=== PATIENT | female | born 1955 | race Caucasian/White ===

== ENCOUNTER → 2018-11-02 14:52 | Outpatient (CLI) | payer SELFPAY ==
--- NOTE | 2018-11-02 | DI.MG.S_ITS ---
BILATERAL DIGITAL SCREENING MAMMOGRAM 3D/2D WITH CAD POST LUMPECTOMY: 11/02/2018 CLINICAL: Routine screening. Personal history of left breast cancer. Comparison is made to exams dated: 09/29/2017 mammogram, 08/12/2016 mammogram, 06/22/2015 mammogram, 03/30/2011 mammogram - [facility], 06/21/2012 mammogram, and 09/17/2013 mammogram - [facility]. There are scattered fibroglandular elements in both breasts. Current study was also evaluated with a Computer Aided Detection (CAD) system. There are benign post operative findings in the left breast. No significant masses, calcifications, or other findings are seen in either breast. There has been no significant interval change. IMPRESSION: There is no mammographic evidence of malignancy. A 1 year screening mammogram is recommended. This exam was interpreted at Station ID: [id number]. NOTE: For mammograms, a report in lay terms will be sent to the patient. Approximately 15% of breast malignancies will not be visualized mammographically. In the management of a palpable breast mass, a negative mammogram must not discourage biopsy of a clinically suspicious lesion. Electronically Signed By: Steffen jo/arina:11/02/2018 18:07:02 letter sent: Normal Exam ACR BI-RADS Category 2: Benign Finding(s) 3342F
== END ==
PROVIDERS: PCP Family Medicine; Visit Provider Family Medicine
DX: Z12.31 Encounter for screening mammogram for malignant neoplasm of breast (principal); Z85.3 Personal history of malignant neoplasm of breast
CPT/HCPCS: 77063; 77067

== ENCOUNTER 2019-08-12 10:38 | Day surgery (SDC) | payer SELFPAY ==
[2019-08-02 12:54] VITALS: BMI 31.4
[2019-08-12] VITALS (17 sets, daily range): BP systolic 118–167; BP diastolic 68–98; PULSE 88–98; RESP 8–22; TEMP 35.7–36.6; O2SAT 89–99; BMI 30.7
--- NOTE | 2019-08-12 06:00 | DI.RAD.S_ITS ---
PROCEDURE: XR KNEE RT 1TO2V INDICATIONS: post op TECHNIQUE: 2 view(s) of the knee acquired. [facility], XR KNEE ARTHRITIC SERIES RT, 07/04/2019, 8:18. FINDINGS: Bones: Patient is status post right total knee joint arthroplasty. Hardware components are in expected positions. Visualized bony structures are intact. Soft tissues: Overlying postoperative changes are noted. IMPRESSION: Satisfactory appearance of the right total knee arthroplasty. Dictated by: Joseph Solitario M.D. on 08/12/2019 at 16:08 Approved by: Joseph Solitario M.D. on 08/12/2019 at 16:09
[2019-08-12] MEDS: ACETAMINOPHEN 325 MG TABLET 975 MG PO (11:12)
[2019-08-12] MEDS: PREGABALIN 75 MG CAPSULE PO (11:13)
[2019-08-12] MEDS: CELECOXIB 200 MG CAPSULE PO (11:13)
--- NOTE | 2019-08-12 12:33 | PM.PREOP ---
Pre-operative Note Interval Note History & Physical reviewed/Exam performed by Physician: Yes Changes to H&P: No
[2019-08-12] MEDS: CEFAZOLIN 2 GM/100 ML FROZ.PIGGY IV (13:18)
[2019-08-12] MEDS: TRANEXAMIC ACID 1,000 MG VIAL 1000 MG INJ ×2 (13:46→14:46)
--- NOTE | 2019-08-12 13:59 | SUR.OPER ---
Supine on padded OR bed. Pillow under head, arms secured on padded armboards <90 degree abduction. Safety belt across torso. Non-operative leg secured with tape over blanket over lower leg. Operative leg secured in De[employer]o positioner. Foam padded brace at thigh of operative leg.
[2019-08-12] MEDS: MORPHINE 4 MG/ML INJ INJ (14:03)
[2019-08-12] MEDS: BUPIVACAINE LIPOSOME 266 MG/20 ML VIAL INJ (14:05)
[2019-08-12] MEDS: BUPIVACAINE 0.25% W/ EPI 30 ML VIAL 60 ML INJ (14:06)
[2019-08-12] MEDS: LACTATED RINGERS 1,000 ML 42 ML IV (14:29)
--- NOTE | 2019-08-12 15:10 | PM.OP.1 ---
Operative Date/Time/Diagnoses Date of procedure: 08/12/19 Time of procedure: 15:00 Pre-op diagnosis: Right knee osteoarthritis Post-op diagnosis: same Procedure & Clinicians Procedure: Right total knee replacement Same procedure as scheduled: Yes Indications: The patient has had progressively worsening right knee pain with radiographic changes consistent with arthritis. Non-operative management has failed and the patient has requested total knee replacement. The risks, benefits and alternatives to surgery were discussed with the patient prior to proceeding. Risks discussed included, but were not limited to, failure to relieve pain, stiffness, infection, nerve damage, deep venous thrombosis, pulmonary embolism, stroke, coma, heart attack, permanent paralysis and , as well as the potential need for eventual revision of the prosthetic. Surgeon: Shukri Blount Instrumentation Manager: Buck Lee Click Yes if Unassisted: No Anesthesia Type: General and Local Operative Notes Findings: Severe lateral compartment osteoarthritis with significant medial and patellofemoral degenerative change. Closure Type: primary Specimen(s): none sent Prosthetic devices, grafts, tissues, transplants, or devices: Implants used in this procedure were manufactured by the [employer] and included the BCS II Journey total knee replacement with a size 5 right Oxinium femoral component, a size 4 right non porous tibial base plate, a 10 mm cross-linked polyethylene tibial insert and a 32 mm oval Jada II patellar component. Applied: implant(s) Estimated Blood Loss (mL): 50 Blood products transfused: none Tourniquet time (min): 50 Procedure in detail: The patient was seen in the pre-operative area, where the patient identified the right knee as the operative site and this was marked with my initials. The patient received pre-operative antibiotics, and was taken to the operating room and placed on the operative table in the supine position. After satisfactory anesthesia, a radio time salesperson out was performed. The right leg was encircled with a tourniquet about the proximal thigh, and the leg was prepared from the toes to the tourniquet with ChloroPrep in the usual fashion and draped through sterile drapes. The leg was elevated and exsanguinated with Eschmark bandage and the tourniquet inflated to 250 mmHg pressure. The knee was approached through an approximately 18 cm incision centered over the patella and carried into the knee through a medial parapatellar arthrotomy. The anterior osteophytes and soft tissues were removed. The rotational landmarks of Council's line and the transepicondylar axis were marked on the femur with electrocautery, and intramedullary guide holes for the femur and tibia were created. The distal femoral cut was made in 6 degrees of valgus using the intramedullary guide at the primary cut setting. The proximal tibial cut was then made using the intramedullary guide, taking 9 mm of bone off the less involved side. The extension gap was checked and the rotation of the femoral component confirmed with the gap balancing system. The anterior, posterior and chamfer cuts were then made. The posterior osteophytes and soft tissues were then removed. The posterior capsule was injected with part of a mixture of 60 ml 0.25% Marcaine mixed with 20 ml Exparel and 4 mg of morphine for post-operative pain control. The remainder of this mixture was injected into the capsule and subcutaneous tissues during cement curing. The tibia was prepared with the rotation set by an extra medullary guide. Trial tibial and femoral components were then placed and the intercondylar notch cut through the femoral trial. Range of motion was 0-135 degrees, with good stability throughout the range. The patella was then cut to accommodate the patellar prosthetic. There was no need for a lateral release. The trials were then removed, and the femoral hole plugged with a bone plug. The bone was prepared with pulsatile lavage, and dried with a sponge. Cement was applied and the final prosthetics placed. Excess cement was removed during and after cement curing. After confirming there was no extruded cement posteriorly, the final tibial insert was placed. The knee was copiously irrigated and the tourniquet deflated. Hemostasis was obtained. The capsule was closed with interrupted # 2 polyester suture. The subcutaneous layer was closed with 3-0 Vicryl, and the skin with a running 3-0 V-Lock suture and SteriStrips. An Aquacel Ag dressing was applied and the patient was taken to recovery having tolerated the procedure well. Complications: none Post-operative Condition: stable Disposition: PACU Plan for aftercare: The patient will be maintained on a standard total knee replacement protocol with weight bearing as tolerated. The patient will receive aspirin and sequential compression devices for DVT prophylaxis. The patient will be discharged home when safe for the home environment.
[2019-08-12] MEDS: fentaNYL 100 MCG/2 ML INJ IV ×4 (15:38→15:54)
[2019-08-12] MEDS: HYDROMORPHONE 2 MG INJ IV ×5 (15:39→16:10)
--- NOTE | 2019-08-12 16:01 | SUR.PHASEI ---
Bedside report given to PILI Snell at this time. Pt in stable condition, vss. Transferred care of pt to Pili Snell at this time.
--- NOTE | 2019-08-12 16:25 | SUR.PHASEI ---
Assumed care of pt at this time. pt sitting up in bed with eyes open, alert and oriented at this time. VSS.
--- NOTE | 2019-08-12 17:09 | SUR.PHASEI ---
pt transferred to acute care floor in stable condition, vss. Bedside report given to JUSTYN Da Silva at that time. Pt alert and talking to RN. Transferred to JUSTYN Da Silva at that time in stable condition.
[2019-08-12] MEDS: IBUPROFEN 400 MG TABLET PO ×2 (18:03→22:00)
[2019-08-12] MEDS: ONDANSETRON 4 MG/2 ML INJ IV (18:04)
[2019-08-12] MEDS: OXYCODONE IR 10 MG TABLET PO ×2 (18:04→22:03)
[2019-08-12] MEDS: LACTATED RINGERS 1,000 ML 125 ML IV (18:04)
[2019-08-12] MEDS: hydrOXYzine pamoate 25 MG CAPSULE PO (18:04)
[2019-08-12] MEDS: ASPIRIN EC 81 MG TABLET PO (22:00)
[2019-08-12] MEDS: DOCUSATE 100 MG CAPSULE PO (22:00)
[2019-08-12] MEDS: ACETAMINOPHEN 325 MG TABLET 650 MG PO (22:00)
[2019-08-12] MEDS: AMITRIPTYLINE 25 MG TABLET 100 MG PO (22:04)
--- NOTE | 2019-08-12 22:47 | PC.NURSE ---
Evening Shift Note- Patient arrived to [facility] via bed from PACU. Admit completed. Oriented patient to bed and bed controls, room, phone, lights,menu, bathroom, and call sam/tv remote. Ice packs applied. dressing c/d/i, alec wrap in place. safety measures in place. bed alarm activated. call sam and phone within reach. will continue to monitor.
[2019-08-13 00:15] VITALS: BP 155/86; PULSE 103; RESP 18; TEMP 36.7; O2SAT 95
[2019-08-13] MEDS: IBUPROFEN 400 MG TABLET PO ×2 (00:26→09:16)
[2019-08-13] MEDS: hydrOXYzine pamoate 25 MG CAPSULE PO (02:10)
[2019-08-13] MEDS: OXYCODONE IR 10 MG TABLET PO (02:10)
--- NOTE | 2019-08-13 02:34 | PC.NURSE ---
PT HESITANT TO GET UP INTIALLY TO VID ON BSC- VERY ANXIOUS, BUT SURPRISED HERSELF WITH HER PAIN CONTROL AND MOBILITY- ASSISTED X 2 TO BSC FOR APPROX 300CC EACH VOID, PASSING FLATUS AND C/O IV PUMP TO THE POINT OF DISTRESSING PT. - SALINE LOCKED IVF AND AFTER 2ND VOID MEDICATED WITH OXYCODONE AND HYDROXYZINE - RESTING COMFORTABLY SINCE- FRESH ICE REAPPLIED TO RIGHT KNEE INCISION.
[2019-08-13 05:13] LABS: Hematocrit 38.3 % (36-46)
--- NOTE | 2019-08-13 07:37 | PM.DS.1 ---
History of Present Illness History of Present Illness Date Patient Seen: 08/13/19 Time Patient Seen: 07:37 Chief complaint: [id number] Total Knee Arthroplasty Narrative: The history and physical is contained in the chart previously completed note. Please refer to that note for this information. Discharge Providers Provider Date of admission: 08/12/19 10:38 Discharge Date: 08/13/19 Primary care physician: Jefry Vera MD Consults: 08/12/19 17:29 Consult to Discharge Planning Routine Comment: Consult to Physical Therapy Evaluate & Treat Comment: Physician Instructions: postop TKA protocol Discharge provider: Shukri Blount MD Summary Hospital Course Discharge Diagnosis: Right knee osteoarthritis Hospital Course: The patient was admitted to the hospital and taken directly to the operating room on August 12, 2019. She underwent a right total knee replacement without complications. She had some mild postoperative nausea which resolved with time and antiemetics. On the morning of postoperative day 1 it appeared she was stable for discharge. Status at Discharge Cognitive/behavioral status at discharge: oriented Functional status at discharge: uses cane/walker Overall status at discharge: patient is progressing back to baseline Time Spent with Patient Time spent: Less than 30 minutes Exam Vital Signs (past 8 hours): - 08/13/19 00:15 Temperature 98.1 F Pulse Rate 103 H Respiratory Rate 18 Blood Pressure 155/86 H Pulse Oximetry 95 Oxygen Delivery Method Nasal Cannula Oxygen Flow Rate 0 Narrative Exam Narrative: Right knee wound is dressed with no drainage on the bandage. Calf is soft. Light touch and motion are intact in the right lower extremity. Objective Labs Result Diagrams: 08/13/19 05:00 Labs: Laboratory Results - last 24 hr 08/13/19 05:00 Hgb 13.0 Hct 38.3 Discharge Plan Discharge Plan Patient Disposition: Home Discharge orders & Medications Prescriptions: New acetaminophen 325 mg Tablet 650 mg PO TID 30 Days Qty: 180 RF: 0 aspirin 81 mg Tablet,Delayed Release (Dr/Ec) 81 mg PO BID 42 Days Qty: 84 RF: 0 hydroxyzine pamoate 25 mg Capsule 25 mg PO Q6HR PRN (Reason: Nausea) Qty: 40 RF: 0 oxycodone 5 mg Tablet 5 mg PO Q4HR PRN (Reason: Pain, Moderate (4-6)) Qty: 40 RF: 0 Continued calcium carbonate [Calcium 500] 500 mg calcium (1,250 mg) Tablet 500 mg PO DAILY Qty: 0 RF: 0 amitriptyline 100 MG tablet 100 mg PO HS Qty: 90 RF: 4 clobetasol-emollient 0.05 % cream 1 briseida Topical TID PRN (Reason: Itching) RF: 0 ibuprofen 200 mg Capsule 600 mg PO BID-TID PRN (Reason: Pain) RF: 0 Follow up/Referrals: Shukri Blount MD [Physician] - 2 Weeks Jefry Vera MD [Primary Care Provider] - Discharge Health Status Multidrug resistant organism: No MDRO Diet/Activity/Treatments Diet: Diet as Tolerated and Regular Activity: You may bear weight as tolerated on your right leg. Cold/Heat Therapy: Apply ice to the right knee for 15 minutes every hour as needed for pain control. Skin/Wound/Dressing Care Report to your healthcare provider any signs of infection, such as:: chills, fever, night sweats, increased pain, unusual drainage and unusual redness Dressing: You may remove the Venkat wrap 3 days after surgery and shower normally with the deeper dressing in place. Do not remove the deeper dressing until your follow-up. If the central strip of the deeper dressing becomes saturated with either water or blood, please call the office to have it evaluated. Visit Report/Discharge Packet Instructions: DI for Knee Replacement, DI for Prescription Opioid Use Stand Alone Forms: Surgery Discharge Discharge Data Primary Care Provider: Jefry Vera Quality VTE Deep Vein Thrombosis/Pulmonary Embolism Present on Admission: No
[2019-08-13 07:40] VITALS: BP 127/80; PULSE 95; RESP 16; TEMP 36.7; O2SAT 96
[2019-08-13] MEDS: ASPIRIN EC 81 MG TABLET PO (09:16)
[2019-08-13] MEDS: ACETAMINOPHEN 325 MG TABLET 650 MG PO (09:16)
[2019-08-13] MEDS: DOCUSATE 100 MG CAPSULE PO (09:16)
[2019-08-13] MEDS: SODIUM CHLORIDE 0.9% FLUSH 10 ML IV (09:19)
--- NOTE | 2019-08-13 10:35 | PT.IIE ---
Current Diagnoses Unilateral primary osteoarthritis, right knee (08/12/19) Surgery Performed Operation Date: 08/12/19 12:45 Actual Procedures p Total Knee Arthroplasty(Right) - Shukri Blount MD Surgical History (Last Updated 08/02/19 @ 13:15 by Reva Ventura RN) H/O: hysterectomy (Acute) History of section (Acute) History of lumpectomy of left breast (Acute ~2011) Hx of shoulder surgery (Acute ~2017) S/P foot surgery, left (Acute) Medical History (Last Updated 08/02/19 @ 13:15 by Reva Ventura RN) Breast cancer, left (Acute ~2011) Edema (Acute) Osteoarthritis (Acute) Skin cancer of face (Acute) Physical Therapy Inpatient Evaluation/Re-Eval M1 PT/OT-IP Prior Functional Status Start: 08/13/19 08:35 Freq: NEEDED Status: Active Protocol: Document 08/13/19 10:35 AW (Rec: 08/13/19 11:01 AW [id number]) Medical Review Prior Functional Status Medical History Reviewed Yes Diet/Fluid Consistency Regular Communication WNL Mobility and Gait Independent without AD. Since March, pt reports worst pain with driving and with being outside in the cold. 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 Activities of Daily Living and IADL's Independent Social History Household Members spouse Living Arrangements House Number of Floors (Floors) One Floor Number of Stairs To Enter/Railing? 1 10 PARMINDER without railing. House is split into two sections with bedroom, bathroom, and laundry on one side and kitchen, living room on the other side. Pt must walk ~15' outside between the sections on a wooden deck without stairs. Pt describes tub as a deep jacuzzi tub/shower with glass doors. She states she acquired a bench as tall as the tub that sits outside the tub for her to be able to sit and lift her legs over the side and then transfer to the shower seat in the tub. 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 Baudilio has taken 1 week off work to be home when pt discharges. Her brother also lives nearby and is able to assist as needed. M2 PT-IP Current Condition Start: 08/13/19 08:35 Freq: NEEDED Status: Active Protocol: Document 08/13/19 10:35 AW (Rec: 08/13/19 11:01 AW [id number]) Physical Therapy Current Condition Current Condition Evaluation Date 08/13/19 Treatment Diagnosis R TKA; impaired mobility Onset Date 08/12/19 Weight Bearing Status Weight Bearing Status Weight Bear as Tolerated M3 PT-IP Subjective Start: 08/13/19 08:35 Freq: NEEDED Status: Active Protocol: Document 08/13/19 10:35 AW (Rec: 08/13/19 11:01 AW [id number]) Subjective Physical Therapy Visit Type Type Initial Evaluation Visit Start Time 09:06 Visit Stop Time 09:45 Total Visit Minutes 39 Physical Therapy Visit Comments Patient Comments Pt sitting up in chair, willing to participate with PT Patient Goals [place] [address] [place]. Therapy Pain Assessment Pain When Pain Assessed During Mobility Pain Present Pain Present Pain Reported Location right knee Intensity 5 Scale Used 0/10 at rest; 5/10 with mobility Pain Management Techniques Apply Cold,Re-positioning, Timing of Activity with Medications M4 PT-IP Mobility and Gait Start: 08/13/19 08:35 Freq: NEEDED Status: Active Protocol: Document 08/13/19 10:35 AW (Rec: 08/13/19 11:01 AW [id number]) PT-Bed Mobility Assessment Supine to Sit Supine to Sit Standby Assistance Sit to Supine Sit to Supine Standby Assistance Scooting Scooting to Edge of Bed Standby Assistance Scooting Up and Down in Bed Standby Assistance PT-Transfer Assessment Sit to and From Stand Sit to and from Stand Standby Assistance,Use of Upper Extremities Equipment Transfer Assistive Device Gait Belt,Front Wheeled Walker Orthotic/Prosthetic Devices or Brace: No Transfers Transfer Destination Bed,Chair,Toilet Transfer Technique pt ambulated with FWW Transfer Ability Level of Assist Standby Assistance Comments Mobility Comments Pt stood from chair with FWW SBA with cues to use BUE to push off from chair arms. After gait assessment, pt returned to the room to use the toilet, transferring with FWW SBA. She transferred to and from the bed SBA and returned to the chair. Pt was repositioned with fresh ice packs appied, call light and table within reach. Gait Assessment Gait Gait Assistance Required: Standby Assistance Distance (Feet) 100 Able to Maintain Weight Bearing Status Yes During Gait Assistive Devices Assistive Device Gait Belt,Front Wheeled Walker Orthotic/Prosthetic Devices or Brace: No Gait Deviations General Gait Pattern Antalgic,Decreased Stride Length,Decreased Feet Clearance,Step-to Gait Factors Limiting Gait Function Factors Limiting Gait Function Decreased Activity Tolerance, Decreased Strength,Limited Range of Motion,Pain Comments Gait Comments Pt ambulated in the hallway using FWW SBA. She was able to correct step-to pattern in response to verbal cues and maintain swing-through pattern with relatively equal step lengths >50 feet without additional cues. Stair Climbing Assessment Evaluation Level of Assist On Stairs Standby Assistance Devices Stair Climbing Assistive Devices Front Wheel Walker Technique/Endurance Stair Climbing Direction Ascend and Descend Stair Climbing Technique Step to Step Number of Steps Climbed 1 Query Text: Stair Climbing Set # Repetitions (reps) 4 Comments Stair Climbing Comments Pt ascended/descended platform step using FWW SBA. After brief demonstration for sequencing, pt was able to correctly sequence stair navigation with occasional cueing from her spouse who provided appropriate instruction. PT-Balance Assessment Sitting Balance and Reactions Static Sitting Balance Ability Normal Standing Balance and Reactions Static Standing Balance Ability Good Dynamic Standing Balance Ability Good Device Used FWW M5 PT-IP Objective Assessments Start: 08/13/19 08:35 Freq: NEEDED Status: Active Protocol: Document 08/13/19 10:35 AW (Rec: 08/13/19 11:01 AW [id number]) Orientation Orientation/Cognition Level of Alertness Alert Orientation Name,Day of Week,Place, Situation Language Function Ability No Deficits Noted Safety Awareness Understands Safety Issues Memory Description No Deficits Noted Gross Range of Motion Upper Extremity ROM Assessment Within Functional Limits Lower Extremity ROM Assessment Right Impaired Strength Lower Extremity Strength Assessment Bilaterally Impaired Hip B 4-/5 Knee L 4+/5 Ankle B4+/5 Coordination Assessment Gross Coordination Gross Coordination WNL Sensation Assessment Sensation Gross Sensation WNL Muscle Tone Muscle Tone WNL Yes M6 PT-IP Treatment Start: 08/13/19 08:35 Freq: NEEDED Status: Active Protocol: Document 08/13/19 10:35 AW (Rec: 08/13/19 11:01 AW [id number]) Physical Therapy Treatment Exercises Exercises Ankle Pumps,Quad Sets,Heel Slides,Passive Knee Extension Hang Education Education Provided Precautions,Weight Bearing Status,Post-Op Packet,Safety Other Treatments Other Treatment Performed Provided education on role of PT, plan of care, weightbearing status, and safe use of FWW. M7 PT-IP Assessment and Plan Start: 08/13/19 08:35 Freq: NEEDED Status: Active Protocol: Document 08/13/19 10:35 AW (Rec: 08/13/19 11:01 AW [id number]) PT Summary Assessment and Plan Potential Rehabilitation Potential Excellent Status of Condition at Evaluation Evolving Summary Impairments Pain,ROM,Strength,Transfers, Gait,Activity Tolerance Assessment Summary Nesha is an active 64 yo woman seen for PT evaluation on POD 1 following R TKA. 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 On evaluation, pt required no more than SBA for all mobility, including stairs . She will be safe to discharge home with spouse and family assist plus outpatient PT which she already has scheduled. Goals Bed Mobility Goal Independent Transfer Goal Independent,Front Wheeled Walker Gait Goal Independent,Front Wheel Walker Gait Distance 200 Other Goals -up/down platform step with FWW mod independent Days to Meet Goals 1 Frequency of Treatment Frequency Of Treatment Twice a Day Treatment Plan Physical Therapy Treatment Plan Bed Mobility Training,Transfer Training,Gait Training, Therapeutic Exercise,Balance Retraining,Post Op Education, Discharge Planning,Hot or Cold Pack,Neuromuscular Re-ed, Coordination Retraining,Manual Therapy Other Recommendations and Next Treatment progress gait distance, ask Focus for questions about getting in and out of tub, revisit platform stair navigation Recommendations To Nursing Amount of Assist Needed Standby Assistance Discharge Recommendations PT Discharge Recommendations Home with Assistance, Outpatient PT Transportation Needs at Discharge Private Vehicle
[2019-08-13] MEDS: OXYCODONE IR 5 MG TABLET PO (13:39)
--- NOTE | 2019-08-13 13:50 | PC.NURSE ---
Went over dc instructions and medications with patient, questions answered. Patient taken via WC to vehicle driven by spouse. [place] priority load given, patient had all belongings.
--- NOTE | 2019-08-13 14:18 | CM.DANOTE ---
Patient is a 64 year old female who was admitted on 08/12/19 for Total Knee. Pt has Dr. Jefry Vera for PCP and per RN, pt has been cautious in her room due to fear of pain. Per Ortho team, pt medically stable to d/c home today pending PT. 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 SW unable to complete bedside assessment due to triage needs and No identified barriers to discharge. Plan: Patient discharged home today via spouse POV and outpt PT and no SW needs at this time. FAMILIA Rankin Discharge Planning/Care Management CM Discharge Assessment Start: 08/13/19 14:15 Freq: Status: Discharge Protocol: Document 08/13/19 14:16 BF (Rec: 08/13/19 14:17 BF [id number]) Discharge Planning Assessment Assigned Sheet Folder FAMILIA Coles Advance Directives? No Advance Directives on File No History Provided By Patient,Medical Record Has Patient been admitted in last 30 No days? 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 Yes Caregiver for Another No Discharge Plan Home Community Services Physical Therapy Transportation Arrangement Spouse can provide transport Referrals Initiated None needed Review Status In Process Please Provide Date Initial DC 08/13/19 Assessment Was Performed Next Review Type Continued Stay Review Pre-Anesthesia Assessment Start: 08/02/19 12:54 Freq: Status: Complete Protocol: Document 08/02/19 12:54 CAB (Rec: 08/02/19 13:31 CAB [id number]) Pre-Anesthesia Assessment Patient Information Reviewed Via Phone Assessment Assessment Completed With Patient Comment Completed w/PCP 08/01 - not available at time of assess Primary Care Provider Jefry Vera Seen Specialist in Last 12 Months Yes Specialist Seen Emergency,Orthopedist Primary Language Tunisian Resistor Winder Required No Height 167.64 cm Weight 88.451 kg Body Mass Index (BMI) 31.4 Hearing Ability Normal Visual Assist Glasses Dentition Type Teeth, Natural Present Barriers to Learning None Other Aids No Hx Anesthesia Reactions No: It can take more sometimes Hx Family Anesthesia Reaction No Hx Malignant Hyperthermia No Hx Blood Transfusions No Anesthesia Review Requested No alcohol intake current alcohol intake frequency 0-2 drinks per day Smoking Status Never smoker Substance Use Type does not use Pain Present Pain Reported Musculoskeletal Symptoms Abnormal Gait,Difficulty Walking,Joint Pain History of Falling (Recent or History of Yes ) Patient is completely paralyzed or No completely immobile Mental Status Oriented to own ability Is patient on oxygen? No Does patient have MCDONOUGH/SOB No Hx Sleep Apnea No Currently Taking a Beta Yu No Can You Climb a Flight of Stairs Without Yes SOB Hx Chest Pain No Hx SOB No Hx Syncope or Dizziness No Anti-Coagulant Therapy No Has a Railway Signalling Engineer No Cardiac Testing No Hx Pacemaker/ICD No Pacemaker Rep Required? No Cardiac Clearance Received Not Applicable Diet Type At Home Regular dysphagia No Urinary Catheter Present No Hx Urinary Self Catheterization No Diabetes No Patient No Lactating No Hx Drug Resistant Organism No Presence of External or Internal Medical Yes: Plate in left foot Devices Have you traveled outside the [facility] in the last 30 days? Marital Status Lives With spouse Prior Living Arrangements House Number of Floors (Floors) One Floor Support System Child/Children,Friend(s), Spouse Does the Patient Have Assistance After Yes Surgery Patient Discharge Plan Description Return Home Comment Pt advised overnight length of stay per surgeon, lives [place] [address] Feels Safe in Current Environment Yes Been Physically Hurt or Threatened By a No Person in Current Environment Do you have thoughts of harming yourself None or others? Are you currently considering suicide? No Do you have a plan to hurt yourself or No Plan others? Do You Have Any Spiritual Beliefs That No May Affect Your HC Choices? Do You Have Any Cultural Practices That No May Affect Your HC Choices? Comment Amish Who Can We Speak to About Patient's Care Family, friends Identifying Code for Release of Patient Declines to issue Information Health Care Proxy/Next of Kin Baudilio () Health Care Proxy Emergency Contact Name Baudilio () Bipin (brother) Emergency Contact Bipin: [phone] Advance Directives? No Power of Patcher Bowling Ball No PAC Instructions Do not shave/clip surgical site,Durable medical equipment ,Medications to take/avoid, Nasal antibiotic,No ETOH/ petroleum product on skin DOS, NPO,Post-op transportation,Pre -surgical wash,Sturdy shoes/ comfortable clothes,Do not bring valuables and remove jewelry
== END 2019-08-13 13:51 | disposition home or self-care (01) ==
LOC: AC 08-13 07:34 → OR 08-13 15:24
PROVIDERS: PCP Family Medicine; Referring Provider Orthopaedic Surgery; Visit Provider Orthopaedic Surgery
PROC: 0SRC0JZ Replacement of Right Knee Joint with Synthetic Substitute, Open Approach (ICD-10-PCS; CPT 27447; principal; 2019-08-12 12:45)
DX: M17.11 Unilateral primary osteoarthritis, right knee (principal)
CPT/HCPCS: 27447; 36415; 73560; 85014; 85018; 94762; 97116; 97161; C1776; C9290; J0690; J1100; J1170; J2250; J2270; J2274; J2405; J2704; J3010

== ENCOUNTER → 2019-12-17 14:37 | Outpatient (CLI) | payer OTHER, SELFPAY ==
[2019-08-12 10:57] VITALS: BMI 30.7
--- NOTE | 2019-12-17 | DI.MG.S_ITS ---
BILATERAL DIGITAL SCREENING MAMMOGRAM 3D/2D WITH CAD POST LUMPECTOMY: 12/17/2019 CLINICAL: Routine screening. Personal history of left breast cancer. Comparison is made to exams dated: 11/02/2018 mammogram, 09/29/2017 mammogram, 08/12/2016 mammogram - [facility], 04/29/2014 mammogram, and 09/17/2013 mammogram - [facility]. There are scattered fibroglandular elements in both breasts. Current study was also evaluated with a Computer Aided Detection (CAD) system. There are benign post operative findings in the left breast. No significant masses, calcifications, or other findings are seen in either breast. There has been no significant interval change. IMPRESSION: There is no mammographic evidence of malignancy. A 1 year screening mammogram is recommended. This exam was interpreted at Station ID: [id number]. NOTE: For mammograms, a report in lay terms will be sent to the patient. Approximately 15% of breast malignancies will not be visualized mammographically. In the management of a palpable breast mass, a negative mammogram must not discourage biopsy of a clinically suspicious lesion. Electronically Signed By: Joseph zelaya/arina:12/17/2019 17:49:38 letter sent: Normal Exam ACR BI-RADS Category 2: Benign Finding(s) 3342F
== END ==
PROVIDERS: PCP Family Medicine; Referring Provider Family Medicine; Visit Provider Family Medicine
DX: Z12.31 Encounter for screening mammogram for malignant neoplasm of breast (principal); Z85.3 Personal history of malignant neoplasm of breast
CPT/HCPCS: 77063; 77067

== ENCOUNTER 2020-11-25 11:50 | Emergency (ER) | payer OTHER, SELFPAY ==
[2019-08-12 10:57] VITALS: BMI 30.7
[2020-11-25] VITALS (8 sets, daily range): BP systolic 143–168; BP diastolic 80–97; PULSE 93–106; RESP 15–30; TEMP 36.7; O2SAT 94–100; BMI 32.3
--- NOTE | 2020-11-25 12:23 | DI.RAD.S_ITS ---
PROCEDURE: XR CHEST 1V INDICATIONS: Shortness of breath TECHNIQUE: One view of the chest was acquired. COMPARISON: None. FINDINGS: Surgical changes and devices: None. Lungs and pleura: Question mild interstitial pulmonary edema. No pleural effusions or pneumothorax. Mediastinum: Mediastinal contours appear normal. Heart size is normal. Bones and chest wall: No suspicious bony lesions. Overlying soft tissues appear unremarkable. IMPRESSION: Question mild congestive heart failure. Dictated by: Oj Harrison M.D. on 11/25/2020 at 12:49 Approved by: Oj Harrison M.D. on 11/25/2020 at 12:50
[2020-11-25] MEDS: ASPIRIN 81 MG CHEW TAB 324 MG PO (12:54)
--- NOTE | 2020-11-25 12:57 | ED_ITS ---
HPI - General Adult General Chief complaint: Shortness of Breath/Dyspnea Stated complaint: having trouble breathing for a few days Time Seen by Provider: 11/25/20 12:22 Source: patient Mode of arrival: Ambulatory Limitations: no limitations History of Present Illness HPI narrative: Patient is a 65-year-old female who [place] of what appears to be a new onset left bundle branch block. Patient states that several days ago on Monday she had episode of shortness of breath. This did seem to resolve on its own. She was not having any chest pain at the time. She had another episode a day later but since then has not had any symptoms. Monday was the holiday so she followed up with her primary doctor on Monday who performed an EKG. It did show a left bundle branch block which according to prior EKGs and according to the patient she has never had in the past. She was informed that she should come to the emergency department for evaluation however she stated that they were leaving on vacation in the had packing to do so she did not come last evening but came to the emergency department today. She is asymptomatic currently. No prior history of coronary artery disease. Related Data Home Medications Medication Instructions Recorded Confirmed calcium carbonate [Calcium 500] 500 mg PO DAILY #0 06/17/11 08/12/19 clobetasol-emollient 1 briseida TOPICAL TID PRN 08/02/19 08/12/19 ibuprofen 600 mg PO BID-TID PRN 08/02/19 08/12/19 Previous Rx's Medication Instructions Recorded amitriptyline 100 mg PO HS #90 tab 11/24/16 hydroxyzine pamoate 25 mg PO Q6HR PRN #40 cap 08/13/19 oxycodone 5 mg PO Q4HR PRN #40 tab 08/13/19 Allergies Allergy/AdvReac Type Severity Reaction Status Date / Time No Known Drug Allergies Allergy Verified 11/25/20 12:09 Review of Systems Constitutional Constitutional: Denies fever(s) Cardiovascular Cardiovascular: Denies chest pain, Denies rapid heart rate, Denies irregular heart rhythm and Reports dyspnea (A couple days ago but not currently) Respiratory Respiratory: Reports dyspnea (A couple days ago but not currently) Gastrointestinal Gastrointestinal: Denies abdominal pain Genitourinary Genitourinary: Reports system reviewed and no additional complaints, except as documented Musculoskeletal Musculoskeletal: Reports system reviewed and no additional complaints, except as documented Integumentary/Breasts Skin/Breast: Reports system reviewed and no additional complaints, except as documented Neurologic Neurologic: Reports system reviewed and no additional complaints, except as documented Endocrine Endocrine: Reports system reviewed and no additional complaints, except as documented Hematologic/Lymphatic On Anticoagulants: No Allergic/Immunologic Allergic/Immunologic: Reports system reviewed and no additional complaints, except as documented Patient History Medical History Breast cancer, left (~2011) Edema Osteoarthritis Skin cancer of face Surgical History (Updated 08/02/19 @ 13:15 by Reva Ventura RN) H/O: hysterectomy History of section History of lumpectomy of left breast (~2011) Hx of shoulder surgery (~2017) S/P foot surgery, left Social History household members: spouse Smoking Status: Never smoker alcohol intake: current Smoking Status: Never smoker alcohol intake frequency: 0-2 drinks per day Substance Use Type: does not use Exam Initial Vital Signs Initial Vital Signs: Vital Signs Temperature 98.0 F 11/25/20 12:09 Pulse Rate 106 H 11/25/20 12:09 Respiratory Rate 15 11/25/20 12:09 Blood Pressure 168/92 H 11/25/20 12:09 Pulse Oximetry 100 11/25/20 12:09 Const General: cooperative and comfortable Limitations: mental status not altered HENMT Head: normal to inspection and normocephalic Resp Effort & Inspection: normal respiratory effort Auscultation: clear to auscultation bilaterally Cardio Rate: regular rate Rhythm: regular rhythm GI Inspection: non-distended Palpation: soft and No tender Skin Lesions: no lesions Rashes: no rashes Neuro General: patient alert and patient awake Cognition: normal cognition Speech: speech normal Extrem General: normal to inspection and capillary refill normal Psych Appearance: grossly normal and well kempt Scores GCS Efrem coma scale eye opening: Spontaneous Efrem coma scale verbal response: Orientated [place] coma scale motor response: Obey commands Efrem coma scale total score: 15 Course Orders Ordered: Discontinued Medications Aspirin (Aspirin 81 Mg Chew Tab) 324 mg PO NOW ONE Stop: 11/25/20 12:23 Last Admin: 11/25/20 12:54 Dose: 324 mg Documented by: RHIANNON Vital Signs Vital signs: Vital Signs - 8 hr 11/25/20 12:09 Temperature 98.0 F Pulse Rate 106 H Respiratory Rate 15 Blood Pressure 168/92 H Pulse Oximetry 100 Medical Decision Making Lab Data Lab results reviewed: Yes I reviewed the patient's lab results. Result diagrams: 11/25/20 13:05 11/25/20 13:05 Labs: Lab Results 11/25/20 11/25/20 11/25/20 Range/Units 13:05 13:05 13:05 WBC 6.0 (4.5-11.0) X10^3/uL RBC 4.84 (4.0-5.2) X10^6/uL Hgb 13.8 (12.0-16.0) g/dL Hct 41.7 (36-46) % MCV 86.2 (80-100) fL MCH 28.6 (26-34) PG MCHC 33.2 (30-36) % RDW 13.3 (11.6-14.8) % Plt Count 203 (150-400) X10^3/uL Neut % (Auto) 73.2 (50-75) % Lymph % (Auto) 16.5 L (25-40) % Mcmullen % (Auto) 7.6 (3-14) % Eos % (Auto) 2.1 (2-4) % Baso % (Auto) 0.6 (0-2) % Neut # (Auto) 4400 (5440-1827) /uL Lymph # (Auto) 1000 L (9646-2370) /uL Mcmullen # (Auto) 500 (0-900) /uL Eos # (Auto) 100 (0-450) /uL Baso # (Auto) 0 (0-100) /uL Sodium 137 (137-145) mmol/L Potassium 4.0 (3.4-5.1) mmol/L Chloride 105 (98-107) mmol/L Carbon Dioxide 28 (22-32) mmol/L BUN 17 (7-17) mg/dL Creatinine 0.69 (0.52-1.04) mg/dL Estimated GFR > 60.0 (>60) mL/min BUN/Creatinine Ratio 24.6 H (6-22) Glucose 98 (80-110) mg/dL Calcium 9.6 (8.4-10.2) mg/dL Total Bilirubin 0.5 (0.2-1.3) mg/dL AST 26 (14-36) IU/L ALT 21 (<35) IU/L Alkaline Phosphatase 95 (38-126) U/L Total Creatine Kinase 45 (30-135) U/L CK-MB (CK-2) TNP CK-MB (CK-2) Rel Index TNP Troponin I < 0.012 (0.01-0.034) ng/mL NT-Pro-B Natriuret Pep 1220 H (<125) pg/mL Total Protein 6.8 (6.3-8.2) g/dL Albumin 3.9 (3.5-5.0) g/dL Globulin 2.9 (1.7-4.1) g/dL Albumin/Globulin Ratio 1.3 (1.0-2.8) Lipase 41 (23-300) U/L SARS-CoV-2 (PCR) (Negative) 11/25/20 Range/Units 13:10 WBC (4.5-11.0) X10^3/uL RBC (4.0-5.2) X10^6/uL Hgb (12.0-16.0) g/dL Hct (36-46) % MCV (80-100) fL MCH (26-34) PG MCHC (30-36) % RDW (11.6-14.8) % Plt Count (150-400) X10^3/uL Neut % (Auto) (50-75) % Lymph % (Auto) (25-40) % Mcmullen % (Auto) (3-14) % Eos % (Auto) (2-4) % Baso % (Auto) (0-2) % Neut # (Auto) (1773-0693) /uL Lymph # (Auto) (3115-3821) /uL Mcmullen # (Auto) (0-900) /uL Eos # (Auto) (0-450) /uL Baso # (Auto) (0-100) /uL Sodium (137-145) mmol/L Potassium (3.4-5.1) mmol/L Chloride (98-107) mmol/L Carbon Dioxide (22-32) mmol/L BUN (7-17) mg/dL Creatinine (0.52-1.04) mg/dL Estimated GFR (>60) mL/min BUN/Creatinine Ratio (6-22) Glucose (80-110) mg/dL Calcium (8.4-10.2) mg/dL Total Bilirubin (0.2-1.3) mg/dL AST (14-36) IU/L ALT (<35) IU/L Alkaline Phosphatase (38-126) U/L Total Creatine Kinase (30-135) U/L CK-MB (CK-2) CK-MB (CK-2) Rel Index Troponin I (0.01-0.034) ng/mL NT-Pro-B Natriuret Pep (<125) pg/mL Total Protein (6.3-8.2) g/dL Albumin (3.5-5.0) g/dL Globulin (1.7-4.1) g/dL Albumin/Globulin Ratio (1.0-2.8) Lipase (23-300) U/L SARS-CoV-2 (PCR) Negative (Negative) Imaging Data Chest x-ray: Radiologist's Impression: [address] [id number] ReportSigned Patient: Nesha Shetty LMR#: [id number]: 6Acct:[id number]/Sex: 65 / FDate of Service: 11/25/20Loc: EDAccession Number: [id number] Procedure: XR chest 1V Ordering Provider: Jose De Jesus Sheth D.O. PROCEDURE: XR CHEST 1V INDICATIONS: Shortness of breath TECHNIQUE: One view of the chest was acquired. COMPARISON: None. FINDINGS: Surgical changes and devices: None. Lungs and pleura: Question mild interstitial pulmonary edema. No pleural effusions or pneumothorax. Mediastinum: Mediastinal contours appear normal. Heart size is normal. Bones and chest wall: No suspicious bony lesions. Overlying soft tissues appear unremarkable. IMPRESSION: Question mild congestive heart failure. Dictated by: Oj Harrison M.D. on 11/25/2020 at 12:49 Approved by: Oj Harrison M.D. on 11/25/2020 at 12:50 ECG Data Attestation: I personally reviewed and interpreted this ECG as follows: Prior ECG tracings: not available for review Interpretation: Sinus tachycardia Ventricular rate of wanted to QRS 146 milliseconds QTC 529 Left bundle branch block No ST T wave changes MDM Narrative Medical decision making narrative: Patient is asymptomatic. Does have a left bundle branch block on her EKG. Her troponin was negative. Chest x-ray somewhat concerning about pulmonary edema however the patient does not clinically in heart failure. She is not hypoxic. Not tachypneic. Not hypotensive. Has a clear lung exam. Has no lower extremity swelling. Given her presentation today I feel we can hold on further workup for now. We did discuss left bundle branch block in the concern for this with regard to her cardiac health. We also discussed other concern to include heart failure. She was informed that she needed to contact her primary doctor to discuss further workup to include echocardiogram and potential referral to Cardiology. She expressed understanding and agreement. Discharge Plan Departure Patient Disposition: Home Clinical Impression: LBBB (left bundle branch block) Activity Restrictions/Additional Instructions: I recommend that you talk with your primary doctor about the indications for a referral to have an echocardiogram. Use the inhaler that you were given by your primary doctor if your shortness of breath returns. If this inhaler does not make things better than I do recommend that you go to the closest emergency department for further evaluation. Prescriptions: No Action calcium carbonate [Calcium 500] 500 mg calcium (1,250 mg) Tablet 500 mg PO DAILY Qty: 0 RF: 0 amitriptyline 100 MG tablet 100 mg PO HS Qty: 90 RF: 4 clobetasol-emollient 0.05 % cream 1 briseida Topical TID PRN (Reason: Itching) RF: 0 ibuprofen 200 mg Capsule 600 mg PO BID-TID PRN (Reason: Pain) RF: 0 hydroxyzine pamoate 25 mg Capsule 25 mg PO Q6HR PRN (Reason: Nausea) Qty: 40 RF: 0 oxycodone 5 mg Tablet 5 mg PO Q4HR PRN (Reason: Pain, Moderate (4-6)) Qty: 40 RF: 0 Referrals: Jefry Vera MD [Primary Care Provider] -
[2020-11-25 13:13] LABS: Add Manual Diff / Slide Review NO; Basophils Absolute Auto 0 /uL (0-100); Basophils Percent Auto 0.6 % (0-2); Eosinophils Absolute Auto 100 /uL (0-450); Eosinophils Percent Auto 2.1 % (2-4); Hematocrit 41.7 % (36-46); Hemoglobin 13.8 g/dL (12.0-16.0); Lymphocytes Absolute Auto 1000 /uL (1100-4500); Lymphocytes Percent Auto 16.5 % (25-40); Mean Corpuscular HGB Conc 33.2 % (30-36); Mean Corpuscular Hemoglobin 28.6 PG (26-34); Mean Corpuscular Volume 86.2 fL (80-100); Monocytes Absolute Auto 500 /uL (0-900); Monocytes Percent Auto 7.6 % (3-14); Neutrophils Absolute Auto 4400 /uL (1500-7000); Neutrophils Percent Auto 73.2 % (50-75); Platelet Count 203 X10^3/uL (150-400); Red Blood Cell Count 4.84 X10^6/uL (4.0-5.2); Red Cell Distribution Width 13.3 % (11.6-14.8)
[2020-11-25 13:24] LABS: Alanine Aminotransferase 21 IU/L (<35); Albumin 3.9 g/dL (3.5-5.0); Albumin Globulin Ratio 1.3 (1.0-2.8); Alkaline Phosphatase 95 U/L (38-126); Aspartate Aminotransferase 26 IU/L (14-36); BUN Creatinine Ratio 24.6 (6-22); Bilirubin Total 0.5 mg/dL (0.2-1.3); Blood Urea Nitrogen 17 mg/dL (7-17); Calcium 9.6 mg/dL (8.4-10.2); Carbon Dioxide 28 mmol/L (22-32); Chloride 105 mmol/L (98-107); Creatine Kinase 45 U/L (30-135); Estimated Glomerular Filt Rate > 60.0 mL/min (>60); Globulin 2.9 g/dL (1.7-4.1); Glucose 98 mg/dL (80-110); HEMOLYSIS < 15 (0-50); Lipase 41 U/L (23-300); Sodium 137 mmol/L (137-145); Total Protein 6.8 g/dL (6.3-8.2)
[2020-11-25 13:33] LABS: NT-proBNP (BNP-Adult 18+) 1220 pg/mL (<125)
[2020-11-25 13:37] LABS: Troponin I < 0.012 ng/mL (0.01-0.034)
[2020-11-25 14:08] LABS: COVID19 - ADMIT (NP swab/PCR) Negative (Negative)
== END 2020-11-25 14:37 | disposition home or self-care (01) ==
PROVIDERS: Emergency Provider Emergency Medicine; PCP Family Medicine
DX: I44.7 Left bundle-branch block, unspecified (principal); R06.02 Shortness of breath; Z20.822 Contact with and (suspected) exposure to COVID-19
CPT/HCPCS: 36415; 71045; 80053; 82550; 83690; 83880; 84484; 85025; 87635; 93005; 99283; 99284; C9803

== ENCOUNTER → 2021-01-18 07:36 | Outpatient (CLI) | payer OTHER, SELFPAY ==
[2019-08-12 10:57] VITALS: BMI 30.7
--- NOTE | 2021-01-18 | DI.ECHO.S_ITS ---
[facility] +---------+ : : [address] : : : : [id number] : : : : Phone: [phone] Echocardiogram Report + + :Name: JOANN RUSSELL Study Date: 01/18/2021 Height: 66 in : :[facility] ReadingLocation: Weight: 195 lb : : Gender: Female BSA: 2.0 m2 : :: 1955 Age: 65 yrs BP: 120/90 mmHg: :Reason For Study: DYSPNEA : :Ordering Physician: ALVARO, : :KATELYN Performed By: Kamryn Palmer : :Referring: KATELYN JOHN : + + Interpretation Summary Patient was in ventricular bigeminy throughout entire exam. Mildly dilated left ventricle with ejection fraction 30 +/- 5%. Diastolic parameters suggest a pseudonormalization pattern, consistent with probable elevated filling pressures. Moderately dilated left atrium. No significant valvular abnormality. Procedure: A two-dimensional transthoracic echocardiogram with color flow and Doppler was performed. The study quality was technically adequate. There is no prior echocardiogram noted for this patient. The patient had frequent PVCs during the exam. Patient was in bigeminy throughout entire exam. The heart rate ranged between 85-95 bpm during the study. Left Ventricle: The left ventricle is mildly dilated. The estimated left ventricular end diastolic volume is 120 ml. There is normal left ventricular wall thickness. Left ventricular ejection fraction is estimated to be 30 +/- 5%. There is inferior wall moderate hypokinesis. There is posterolateral wall moderate hypokinesis. There is anterolateral wall moderate hypokinesis. There is a significant dyssynchronous contraction pattern, consistent with a conduction abnormality. Diastolic parameters suggest a pseudonormalization pattern, consistent with probable elevated filling pressures. Right Ventricle: The right ventricle is normal in size and function. Atria: The left atrium is moderately dilated. Right atrial size is normal. There is no Doppler evidence for an interatrial shunt. Mitral Valve: The mitral valve is normal in structure and function. There is trace mitral regurgitation. Aortic Valve: The aortic valve is trileaflet. The aortic valve opens well. There is no aortic valve stenosis. No aortic regurgitation is present. Tricuspid Valve: The tricuspid valve is normal in structure and function. There is trace tricuspid regurgitation. Pulmonary artery pressures cannot be estimated because of the lack of a measurable TR jet velocity. Pulmonic Valve: The pulmonic valve leaflets are thin and pliable; valve motion is normal. There is trace pulmonic regurgitation. Great Vessels: The aortic root is normal size. The dimensions of the ascending aorta are normal. The inferior vena cava was not visualized. Pericardium/ Pleura There is no pericardial effusion. There is no pleural effusion. MMode/2D Measurements & Calculations LVIDd: 5.6 cm LVOT diam: 2.0 cm LVIDs: 4.7 cm Ao root diam: 3.1 cm FS: 16.8 % asc Aorta Diam: 3.1 cm IVSd: 0.66 cm Ao Arch Diam (Prox Trans): 3.0 cm LVPWd: 0.70 cm LV beltran. diameter/BSA (cm/m^2): 2.8 LV sys. diameter/BSA (cm/m^2): 2.4 LA A2 area: 25.4 cm2 RA long axis: 4.1 cm LA A4 area: 21.9 cm2 RA area: 11.9 cm2 LA length (vol): 5.4 cm RA vol: 29.0 ml LA vol: 87.2 ml RA : 14.6 ml/m2 LA vol index: 44.0 ml/m2 RVD1 (basal): 3.0 cm TAPSE: 1.9 cm Doppler Measurements & Calculations Ao V2 max: 153.8 cm/sec LVOT Max Joce: 64.3 cm/sec Ao V2 mean: 116.0 cm/sec LV V1 max P.7 mmHg Ao max P.5 mmHg LV V1 VTI: 13.6 cm Ao mean P.9 mmHg AMITA(I,D): 1.3 cm2 Ao V2 VTI: 32.5 cm AMITA(V,D): 1.3 cm2 sev ratio: 0.42 AMITA indexed to BSA (cm^2/m^2): 0.64 MV E max joce: 88.5 cm/sec PA V2 max: 112.2 cm/sec MV A max joce: 52.2 cm/sec PA V2 mean: 64.2 cm/sec MV E/A: 1.7 PA mean P.0 mmHg Med Peak E' Joce: 7.3 cm/sec PA pr(Accel): 36.2 mmHg E/E' med: 12.1 Lat Peak E' Joce: 7.5 cm/sec E/E' lat: 11.9 E/e' average: 12.0 MV dec time: 0.17 sec SV(LVOT): 40.9 ml Electronically signed by: Mateo sanches Independence Physician:01/18/2021 02:30 PM
--- NOTE | 2021-01-18 | DI.NM.S_ITS ---
PROCEDURE: NM RAMYA PERF SPECT R&S PHARM Rest and pharmacological stress myocardial perfusion SPECT with gated imaging and ejection fraction RADIOPHARMACEUTICAL: 12.7 mCi Tc-99m tetrafosmin IV at rest and 24.7 mCi Tc-99m tetrafosmin IV at peak effect of pharmacological stress. Kfm-mmc-[id number] was performed. INDICATIONS: Dyspnea, unspecified TECHNIQUE: Radiopharmaceutical was injected at peak stress test, and also at rest. SPECT images were obtained. SPECT myocardial perfusion images were displayed in short axis, horizontal long axis, and vertical long axis views. Gated images were reviewed using [employer] software. COMPARISON: None. CARDIAC STRESS: A pharmacologic stress test was performed under the supervision of an attending staff, using an infusion of lexiscan 0.4mg IV X1. Hemodynamic data: There is normal blood pressure and heart rate response to pharmacologic stress. Symptoms: The patient denied anginal chest pain. Aminophylline: none EKG: Resting ECG shows sinus rhythm with LBBB. ECG non-diagnostic with lexican due to baseline LBBB. Frequent PVCs during the study. FINDINGS: Raw data: There is good myocardial uptake of radiotracer. No significant motion artifacts. Upra-es-tzsiu ratio is 0.27 (normal is less than 0.38 for tetrafosmin tracer). Left ventricle function: Gated images demonstrate global hypokinesis that is very severe in the distal anterior wall, distal inferior wall, and the apex. No transient ischemic dilation; TID is 1.16 (normal less than 1.3). Left ventricle end diastolic volume is 217 mL post stress. Left ventricle stress ejection fraction is 29%; normal range is above 45%. Myocardial perfusion: There is a severe large large fixed defect in the distal anterior and the entire apex, suggesting prior infaction. There is a fixed defect in the inferior wall that improves significantly in the basal to mid segments with prone imaging, suggesting diaphragmatic attenuation in the basal to mid inferior wall and old infarction in the distal inferior wall. 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 No significant ischemia. 1) There is a severe large large fixed defect in the distal anterior and the entire apex, suggesting prior infaction. There is a fixed defect in the inferior wall that improves significantly in the basal to mid segments with prone imaging, suggesting diaphragmatic attenuation in the basal to mid inferior wall and old infarction in the distal inferior wall. 2) Enlarged left ventricle with severely reduced systolic function (EF post stress 29%). 3) No angina during the study. 4) ECG non-diagnostic due to the baseline LBBB. 5) No prior nuclear stress test available for comparison. Recommend cardiology consult. Dictated by: Eladia Ortiz MD on 01/18/2021 at 17:21 Approved by: Eladia Ortiz MD on 01/18/2021 at 17:27
[2021-01-18 08:47] LABS: COVID19 -Nasal RAPID Negative (Negative)
== END ==
PROVIDERS: Internal Medicine Cardiovascular Disease; PCP Family Medicine; Referring Provider Family Medicine; Visit Provider Family Medicine
DX: R06.00 Dyspnea, unspecified (principal); R94.39 Abnormal result of other cardiovascular function study; I50.23 Acute on chronic systolic (congestive) heart failure; I44.7 Left bundle-branch block, unspecified
CPT/HCPCS: 78452; 87635; 93017; 93306; A9502; J2785

== ENCOUNTER → 2021-03-05 17:17 | Outpatient (CLI) | payer MEDICARE, OTHER, SELFPAY ==
[2019-08-12 10:57] VITALS: BMI 30.7
--- NOTE | 2021-03-05 | DI.MG.S_ITS ---
BILATERAL DIGITAL SCREENING MAMMOGRAM 3D/2D WITH CAD: 03/05/2021 CLINICAL: Routine screening. Personal history of left breast cancer. Comparison is made to exams dated: 12/17/2019 mammogram, 11/02/2018 mammogram, 09/29/2017 mammogram, 06/22/2015 mammogram - [facility], and 06/21/2012 mammogram - [facility]. There are scattered fibroglandular elements in both breasts. Current study was also evaluated with a Computer Aided Detection (CAD) system. There are benign post operative findings in the left breast. No significant masses, calcifications, or other findings are seen in either breast. There has been no significant interval change. IMPRESSION: BENIGN There is no mammographic evidence of malignancy. A 1 year screening mammogram is recommended. This exam was interpreted at Station ID: [id number]. NOTE: For mammograms, a report in lay terms will be sent to the patient. Approximately 15% of breast malignancies will not be visualized mammographically. In the management of a palpable breast mass, a negative mammogram must not discourage biopsy of a clinically suspicious lesion. Electronically Signed By: Davis hernandez/arina:03/08/2021 07:19:39 letter sent: Normal Exam ACR BI-RADS Category 2: Benign Finding(s) 3342F
== END ==
PROVIDERS: PCP Family Medicine; Referring Provider Family Medicine; Visit Provider Family Medicine
DX: Z12.31 Encounter for screening mammogram for malignant neoplasm of breast (principal); Z85.3 Personal history of malignant neoplasm of breast
CPT/HCPCS: 77063; 77067

== ENCOUNTER → 2022-04-04 14:36 | Outpatient (CLI) | payer MEDICARE, OTHER, SELFPAY ==
[2019-08-12 10:57] VITALS: BMI 30.7
--- NOTE | 2022-04-04 14:39 | DI.MG.S_ITS ---
BILATERAL DIGITAL SCREENING MAMMOGRAM 3D/2D WITH CAD POST LUMPECTOMY: 04/04/2022 CLINICAL: Routine screening. Personal history of left breast cancer. Comparison is made to exams dated: 03/05/2021 mammogram, 12/17/2019 mammogram, and 11/02/2018 mammogram - [facility]. Both breasts are almost entirely fatty (category a/<25% glandular tissue). Current study was also evaluated with a Computer Aided Detection (CAD) system. There are benign post operative findings in the left breast. No significant masses, calcifications, or other findings are seen in either breast. There has been no significant interval change. IMPRESSION: BENIGN There is no mammographic evidence of malignancy. A 1 year screening mammogram is recommended. This exam was interpreted at Station ID: [id number]. NOTE: For mammograms, a report in lay terms will be sent to the patient. Approximately 15% of breast malignancies will not be visualized mammographically. In the management of a palpable breast mass, a negative mammogram must not discourage biopsy of a clinically suspicious lesion. Electronically Signed By: Krysta aldana/arina:04/04/2022 15:35:49 letter sent: Normal Exam ACR BI-RADS Category 2: Benign Finding(s) 3342F
== END ==
PROVIDERS: PCP Nurse Practitioner Family; Referring Provider Nurse Practitioner Family; Visit Provider Nurse Practitioner Family
DX: Z12.31 Encounter for screening mammogram for malignant neoplasm of breast (principal); Z85.3 Personal history of malignant neoplasm of breast
CPT/HCPCS: 77063; 77067

== ENCOUNTER → 2022-06-23 12:14 | Outpatient (CLI) | payer MEDICARE, OTHER, SELFPAY ==
[2019-08-12 10:57] VITALS: BMI 30.7
== END ==
PROVIDERS: PCP Nurse Practitioner Family; Referring Provider Nurse Practitioner Family; Visit Provider Nurse Practitioner Family
DX: Z78.0 Asymptomatic menopausal state (principal); Z13.820 Encounter for screening for osteoporosis; M85.88 Other specified disorders of bone density and structure, other site; Z90.710 Acquired absence of both cervix and uterus
CPT/HCPCS: 77080

== ENCOUNTER → 2023-04-11 15:01 | Outpatient (CLI) | payer MEDICARE, OTHER, SELFPAY ==
[2019-08-12 10:57] VITALS: BMI 30.7
--- NOTE | 2023-04-11 | DI.MG.S_ITS ---
BILATERAL DIGITAL SCREENING MAMMOGRAM 3D/2D WITH CAD: 04/11/2023 CLINICAL: Routine screening. Personal history of left breast cancer. Comparison is made to exams dated: 04/04/2022 mammogram, 03/05/2021 mammogram, and 12/17/2019 mammogram - [facility]. Both breasts are almost entirely fatty (category a/<25% glandular tissue). Current study was also evaluated with a Computer Aided Detection (CAD) system. There are benign post operative findings in the left breast. No significant masses, calcifications, or other findings are seen in either breast. There has been no significant interval change. IMPRESSION: BENIGN There is no mammographic evidence of malignancy. A 1 year screening mammogram is recommended. This exam was interpreted at Station ID: [id number]. NOTE: For mammograms, a report in lay terms will be sent to the patient. Approximately 15% of breast malignancies will not be visualized mammographically. In the management of a palpable breast mass, a negative mammogram must not discourage biopsy of a clinically suspicious lesion. Electronically Signed By: Davis hernandez/arina:04/12/2023 07:15:47 letter sent: Normal Exam ACR BI-RADS Category 2: Benign Finding(s) 3342F
== END ==
PROVIDERS: PCP Family Medicine; Referring Provider Family Medicine; Visit Provider Family Medicine
DX: Z12.31 Encounter for screening mammogram for malignant neoplasm of breast (principal); Z80.3 Family history of malignant neoplasm of breast
CPT/HCPCS: 77063; 77067

== ENCOUNTER → 2024-04-19 08:18 | Outpatient (CLI) | payer MEDICARE, OTHER, SELFPAY ==
[2019-08-12 10:57] VITALS: BMI 30.7
--- NOTE | 2024-04-19 | DI.MG.S_ITS ---
BILATERAL DIGITAL SCREENING MAMMOGRAM 3D/2D WITH CAD POST LUMPECTOMY: 04/19/2024 CLINICAL: Routine screening. Personal history of left breast cancer. Comparison is made to exams dated: 04/11/2023 mammogram, 04/04/2022 mammogram, 03/05/2021 mammogram, and 12/17/2019 mammogram - [facility]. The breasts are almost entirely fatty (category a/<25% glandular tissue). Current study was also evaluated with a Computer Aided Detection (CAD) system. There are benign post operative findings in the left breast. No significant masses, calcifications, or other findings are seen in either breast. There has been no significant interval change. IMPRESSION: BENIGN There is no mammographic evidence of malignancy. A 1 year screening mammogram is recommended. This exam was interpreted at Station ID: [id number]. NOTE: For mammograms, a report in lay terms will be sent to the patient. Approximately 15% of breast malignancies will not be visualized mammographically. In the management of a palpable breast mass, a negative mammogram must not discourage biopsy of a clinically suspicious lesion. Electronically Signed By: Joseph zelaya/arina:04/19/2024 14:57:01 letter sent: Normal Exam ACR BI-RADS Category 2: Benign
== END ==
PROVIDERS: PCP Family Medicine; Referring Provider Family Medicine; Visit Provider Family Medicine
DX: Z12.31 Encounter for screening mammogram for malignant neoplasm of breast (principal); Z85.3 Personal history of malignant neoplasm of breast; R92.313 Mammographic fatty tissue density, bilateral breasts
CPT/HCPCS: 77063; 77067

== ENCOUNTER → 2024-07-08 15:01 | Outpatient (CLI) | payer MEDICARE, OTHER, SELFPAY ==
[2019-08-12 10:57] VITALS: BMI 30.7
== END ==
PROVIDERS: PCP Family Medicine; Referring Provider Internal Medicine; Visit Provider Internal Medicine
DX: R06.02 Shortness of breath (principal); R94.2 Abnormal results of pulmonary function studies; I26.92 Saddle embolus of pulmonary artery without acute cor pulmonale; R05.3 Chronic cough
CPT/HCPCS: 94060; 94726; 94729

== ENCOUNTER → 2024-11-01 10:26 | Outpatient (CLI) | payer MEDICARE, OTHER, SELFPAY ==
[2019-08-12 10:57] VITALS: BMI 30.7
--- NOTE | 2024-11-01 | DI.US.S_ITS ---
PROCEDURE: US THYROID INDICATIONS: THYROID NODULE TECHNIQUE: Real-time scanning was performed of the thyroid gland, with image documentation. COMPARISON: None. FINDINGS: Thyroid: Right lobe measures 6.7 x 2.5 x 3.2 cm. Left lobe measures 4.7 x 1.8 x 1.2 cm. Isthmus is 0.3 cm thick. Echotexture is homogeneous. Nodule number: 1 Location: Right mid Size: 2.5 x 2.8 x 2.9 cm Composition: Solid Echogenicity: Hypoechoic Shape: wider than tall. Margins: Smooth Echogenic foci: Punctate echogenic foci Total points: 7 ACR TI-RADS category: 5 Nodule number: 2 Location: Left mid Size: 1.0 x 0.7 x 0.4 Composition: Solid Echogenicity: Hypoechoic Shape: wider than tall. Margins: Smooth Echogenic foci: None Total points: 4 ACR TI-RADS category: 4 IMPRESSION: Bilateral thyroid nodules. Recommend ultrasound-guided fine-needle aspiration for further evaluation of the right 2.9 cm TR5 nodule and 1 year follow-up of the left thyroid nodule. ACR TI-RADS definitions and recommendations: TI-RADS 1 (benign): 0 points. FNA not needed. TI-RADS 2 (not suspicious): 2 points. FNA not needed. TI-RADS 3: 3 points. * FNA if 2.5 cm or larger, follow up if 1.5 cm or larger (at 1, 3, and 5 years). TI-RADS 4: 4-6 points. * FNA if 1.5 cm or larger, follow up if 1 cm or larger (at 1, 2, 3, and 5 years). TI-RADS 5: 7 points or more. * FNA if 1 cm or larger, follow up if 0.5 cm or larger (every year for 5 years). Approved by: Arnulfo Sykes M.D. on 11/03/2024 at 1:44
== END ==
PROVIDERS: PCP Family Medicine; Referring Provider Family Medicine; Visit Provider Family Medicine
DX: E04.2 Nontoxic multinodular goiter (principal)
CPT/HCPCS: 76536

== ENCOUNTER → 2024-11-27 13:56 | Outpatient (CLI) | payer MEDICARE, OTHER, SELFPAY ==
[2019-08-12 10:57] VITALS: BMI 30.7
--- NOTE | 2024-11-27 | PATH_ITS ---
Note [facility] Accession Number: [id number] TESTS RESULT FLAG UNITS REF RANGE LAB Clinician Provided Cytology Information No. of containers..02 Previously Prepared Cytology Slide 35 Unknown Storage/container code(s) Source: RIGHT THYROID NODULE DIAGNOSIS: RIGHT THYROID NODULE, FINE NEEDLE ASPIRATION. INCONCLUSIVE. BETHESDA CATEGORY III. ATYPIA OF UNDETERMINED SIGNIFICANCE, SEE COMMENT. COMMENT: EXAMINATION OF THE SMEARS REVEALS A HYPOCELLULAR TO MILDLY CELLULAR ASPIRATE, COMPOSED OF COLLOID AND BENIGN FOLLICULAR GROUPS WITH FOCAL HURTHLE CELL CHANGES. IN ADDITION, THERE ARE RARE GROUPS WITH MILD NUCLEAR ENLARGEMENT, OVERLAPPING AND PALLOR. INTRANUCLEAR PSEUDOINCLUSIONS ARE NOT SEEN. THE RISK OF MALIGNANCY IN THE BETHESDA CATEGORY III IS 5-15%. ADDITIONAL MOLECULAR TESTING WILL BE PERFORMED ON THE SUBMITTED RNA VIAL FOR FURTHER EVALUATION. Pathologist ICD10: 01 E04.2 Signed out by: Indio Marina MD, Pathologist NPI- [id number] Performed by: Otto Velazquez, Rn Critical Care ([facility]) Gross description: 30 CC, RED, CLOUDY RECIEVED: IN CYTOLYT WITH 6 ALCOHOL FIXED AND 6 QUICK STAINED SLIDES ALSO 1 RNA VIAL WILL ON 03-15-2025.VO /VDU 11/28/2024 0928 Local FLAG LEGEND: L-Low Normal,H-High Normal,LL-Alert Low,HH-Alert High <-Panic Low,>-Panic High,A-Abnormal,AA-Critical Abnormal Performed at: [address] [address], [place] [address] Cristiano Flores MD, Performed at: [address] [address], [place], [place] [id number] MD Cristiano Flores MD Phone: [phone]
--- NOTE | 2024-11-27 13:58 | DI.US.S_ITS ---
PROCEDURE: US FINE NEEDLE ASPIRATION INDICATIONS: RIGHT THYROID NODULE TECHNIQUE: The indications, alternatives, benefits, risks, and complications of the procedure were explained to the patient. Written informed consent was obtained and placed in the chart. The thyroid region was examined sonographically and a site was chosen for ultrasound guided percutaneous sampling. The skin was prepared and draped in the usual fashion, and anesthetized with 1% lidocaine infiltrated from the skin down to the thyroid gland. Multiple passes were then performed, with contents emptied into an appropriate pathology specimen container. A bandage was applied to the area of access at completion of the study. COMPARISON: [facility], US, US THYROID, 11/01/2024, 11:11. FINDINGS: Location(s) of lesion(s) sampled: Right mid thyroid nodule measuring 2.9 cm. [facility]: 25 gauge hypodermic needles x3. 22 gauge hypodermic needles x3. Medications: 1% lidocaine for local anaesthesia. Complications: None. IMPRESSION: Successful ultrasound-guided thyroid nodule fine needle aspiration, with cytology results pending. Please see chart below for management recommendations based on cytology results. [facility] ReportingRecommendationsNon-diagnostic* Repeat US-guided FNA, with on-site cytology evaluation if possible. * Repeated non-diagnostic nodules without high suspicion US features: close observation vs surgical consult. * Consider surgery if nodule has high suspicion US features, grows >20% in 2 dimensions on followup, or patient has clinical risk factors for malignancy. Benign* If nodule has high suspicion US features: repeat US and FNA within 12 months. * If nodule has low to intermediate suspicion US features: repeat US at 12-24 months. If nodule grows (20% increase in at least 2 dimensions, with minimal increase of 2 mm or >50% change in volume), or development of new suspicious US features, then repeat FNA or continue followup. * If nodule has very low suspicion US features: followup US at >24 months. Atypia of undetermined significance, follicular lesion of undetermined significanceRepeat FNA, molecular testing, followup US, or surgical consult.Follicular neoplasm, suspicious for follicular neoplasmSurgical consult; also consider molecular testing. Suspicious for malignancySurgical consult.MalignantSurgical consult. Dictated by: Joseph Solitario M.D. on 11/27/2024 at 16:21 Approved by: Joseph Solitario M.D. on 11/27/2024 at 16:23
== END ==
LOC: US 13:57
PROVIDERS: PCP Family Medicine; Referring Provider Family Medicine; Visit Provider Family Medicine
DX: E04.2 Nontoxic multinodular goiter (principal)
CPT/HCPCS: 10005

== ENCOUNTER → 2025-04-21 07:42 | Outpatient (CLI) | payer MEDICARE, OTHER, SELFPAY ==
[2019-08-12 10:57] VITALS: BMI 30.7
--- NOTE | 2025-04-21 08:29 | DI.MG.S_ITS ---
MM screening mammo BI: 04/21/2025. BI-RADS: 2 CLINICAL: 70-year old female for bilateral screening mammogram. No Tyrer-Cuzick risk score calculation due to the patient's personal history of breast cancer. Patient reports a history of left breast carcinoma. Status-post left lumpectomy. No first-degree family history of breast cancer. PRIOR EXAMS: 04/19/2024, 04/11/2023, 04/04/2022, 03/05/2021, 12/17/2019, 11/02/2018, 09/29/2017, 08/12/2016, 06/22/2015. MAMMOGRAPHY TECHNIQUE: 2D and 3D (tomosynthesis) digital mammographic views obtained, with additional images as needed for full coverage. Current study was also evaluated with a Computer Aided Detection (CAD) system. DENSITY B. There are scattered areas of fibroglandular density. MAMMOGRAPHY FINDINGS Right: No suspicious mass, asymmetry, microcalcification, or other abnormality seen. Left: Benign-appearing post-surgical changes noted on the left. There are no suspicious masses, calcifications, or other findings in the breast. IMPRESSION: Right * No evidence of malignancy. Left * No evidence of malignancy with benign findings. RECOMMENDATIONS Bilateral * Annual screening mammography. OVERALL ASSESSMENT CATEGORY BI-RADS-2: Benign. The [employer] recommends annual screening mammography beginning at age 40 for women with average risk of breast cancer. ELECTRONICALLY SIGNED: Brandy Wong M.D. on 04/22/2025 at 08:36:24 AM PT Interpreting Station ID: [id number]
== END ==
LOC: MAMMO 07:45
PROVIDERS: PCP Physician Assistant; Referring Provider Physician Assistant; Visit Provider Physician Assistant
DX: Z12.31 Encounter for screening mammogram for malignant neoplasm of breast (principal); Z85.3 Personal history of malignant neoplasm of breast
CPT/HCPCS: 77063; 77067